=== PATIENT | male | born 1975 ===

== ENCOUNTER 2018-06-11 13:48 | Emergency (ER) | payer OTHER ==
--- NOTE | 2018-06-11 16:26 | C.PDOC ---
History Of Present Illness 42 y/o male with no medical hx c/o rectal pain for 10 years, worse for last 2 months. pt sts he had some blood when wiping after defecation for a few days in May 2018, none now. denies anal intercourse or anal fb.. sts stool is hard. denies abdominal pain, nausea and vomiting. no fever or chills. Time Seen by Provider: 06/11/18 14:38 Chief Complaint (Nursing): GI Problem History Per: Patient History/Exam Limitations: no limitations Onset/Duration Of Symptoms: Days (problem for 10 yrs, worse 2 months) Current Symptoms Are (Timing): Still Present Severity: Moderate Quality Of Discomfort: Burning Associated Symptoms: Constipation. denies: Chills, Nausea, Vomiting, Diarrhea Past Medical History Reviewed: Historical Data, Nursing Documentation, Vital Signs Vital Signs: Last Vital Signs Temp 98.5 F 06/11/18 14:00 Pulse 70 06/11/18 14:00 Resp 20 06/11/18 14:00 BP 135/79 06/11/18 14:00 Pulse Ox 100 06/11/18 14:00 - Medical History PMH: No Chronic Diseases Family History: States: Unknown Family Hx - Social History Hx Alcohol Use: Yes Hx Substance Use: No - Immunization History Hx Tetanus Toxoid Vaccination: No Hx Influenza Vaccination: No Hx Pneumococcal Vaccination: No Review Of Systems Constitutional: Negative for: Fever, Chills Cardiovascular: Negative for: Chest Pain Respiratory: Negative for: Cough, Shortness of Breath Gastrointestinal: Positive for: Rectal Pain. Negative for: Nausea, Vomiting, Abdominal Pain, Constipation Skin: Negative for: Rash Neurological: Negative for: Weakness, Numbness Physical Exam - Physical Exam Appears: Non-toxic, No Acute Distress Skin: Warm, Dry Head: Atraumatic, Normacephalic Eye(s): bilateral: Normal Inspection Oral Mucosa: Moist Cardiovascular: Rhythm Regular, No Murmur Respiratory: No Decreased Breath Sounds, No Accessory Muscle Use, No Rales, No Rhonchi Gastrointestinal/Abdominal: Bowel Sounds, Soft, No Tenderness, No Distention, No Guarding, No Rebound Rectal: No Heme Positive, No Maroon Stool, Other (whitish firm tender area at 12 o'clock position rectum, with 2 mm opening in skin. no drainage, no erythema or warmth. no skin tags or hemorrhoids noted, no pain with digital exam in rectum. ) Back: Normal Inspection ED Course And Treatment O2 Sat by Pulse Oximetry: 100 Medical Decision Making Medical Decision Making: pt with fissure like area on rectum, and hard stool, wi;l d/c with mralax, anusol and clinic f/u Disposition Counseled Patient/Family Regarding: Studies Performed, Diagnosis, Need For Followup, Rx Given - Disposition Referrals: [facility] [Outside] Disposition: HOME/ ROUTINE Disposition Time: 16:40 Condition: GOOD Additional Instructions: Coma ms alimentos ricos en fibra y tome ms agua todos los oliva para ablandar las heces. [place] Miralax diariamente hasta que las heces estn ms suaves. Utilice Anbesol moraima se indica para el dolor. Fomentar en la clnica mdica para ledezma posterior evaluacin. Llame para josé miguel joaquin. Eat more high fiber food and drink more water every day to make stool softer. Take Miralax daily until stool is softer. Use Anbesol as directed for pain. FOllow up in medical clinic for further evaluation. Call for an appointment. Prescriptions: Hydrocortisone 2.5% (Rectal) [Anusol-HC] 30 applic [place] BID #1 tube Polyethylene Glycol 3350 [Miralax] 17 gm PO DAILY #1 bottle Instructions: Anal Fissure (DC) Forms: Gen Discharge Inst [place], [facility] ([place]) Print Language: CHADIAN - Clinical Impression Clinical Impression: Anal fissure, unspecified
[2018-06-11 17:10] VITALS: BP 134/78; PULSE 61; RESP 18; TEMP 98.6
[2018-06-12 21:57] VITALS: O2SAT 100
== END 2018-06-11 17:17 | disposition home or self-care (01) ==
LOC: C.ER 13:48
DX: K60.2 Anal fissure, unspecified (principal)
CPT/HCPCS: 99284; G0328